=== PATIENT | female | born 1960 ===

== ENCOUNTER 2018-12-29 07:30 | Inpatient (IN) | payer OTHER ==
[~2018-12-29] VITALS: Ht 157.5 cm; Wt 79.4 kg
[2018-12-30] MEDS ORDERED: LANSOPRAZOLE30 MG ORAL (13:10)
[2018-12-30] MEDS ORDERED: SYMBICORT 16010.2 G1 IH (13:10)
[2018-12-31] VITALS (14 sets, daily range): BP systolic 111–142; BP diastolic 71–82
--- NOTE | 2018-12-31 06:25 | NUR ---
PT HAD UTI AND TOOK ANTIBIOTICS X 5 DAYS LAST DOSE LAST SATURDAY.
[2018-12-31] MEDS ORDERED: LR 1000ml 1,000 ML IVLG SCH (06:36)
--- NOTE | 2018-12-31 06:38 | Anethesia Preoperative Eval ---
Anesthesia Pre-op PMH/ROS General Date of Evaluation: December 31, 2018 Time of Evaluation: 07:01 Anesthesiologist: Lynne ASA Score: ASA 3 Mallampati Score Class I : Soft palate, uvula, fauces, pillars visible Class II: Soft palate, uvula, fauces visible Class III: Soft palate, base of uvula visible Class IV: Only hard plate visible Mallampati Classification: Class II Surgeon: Rachid Diagnosis: Back Pain Surgical Procedure: ALIF L5-S1 Anesthesia History: none Family History: no anesthesia problems Allergies: Coded Allergies: CODEINE (Verified Allergy, Severe, 12/30/18) SOB DIPHENHYDRAMINE (Verified Allergy, Severe, 12/30/18) SKIN RASH Medications: see eMAR Patient NPO?: Yes NPO Date: December 30, 2018 NPO Time: 1900 Past Medical History Cardiovascular: Reports: HTN Pulmonary: Reports: asthma - Bronchitis Gastrointestinal/Genitourinary: Reports: GERD, other - Fatty Liver Neurologic/Psychiatric: Reports: other - Migranes Other: obesity - BMI 33 PSxH Narrative: ARIANNA, Umbilical Hernia, Cholecystectomy, Bilateral Bunionectomy Anesthesia Pre-op Phys. Exam Physician Exam Last Vital Signs Date Time Temp Pulse Resp B/P (MAP) Pulse Ox O2 Delivery O2 Flow Rate FiO2 12/31/18 06:19 97.6 67 20 126/76 (93) 96 12/31/18 05:55 Room Air Constitutional: NAD Neurologic: CN 2-12 intact Cardiovascular: RRR Respiratory: CTA Gastrointestinal: S/NT/ND Airway Exam Mallampati Score: Class II MO: full ROM: full Teeth: intact Anesthesia Pre-op A/P Risk Assessment & Plan Assessment: ASA 3 Plan: GA, SED, GlideScope Go Status Change Before Surgery: No Pre-Antibiotics Dru Grams Ancef IV Given Within 1 Hr of Incision: Yes Time Given: 07:21 Christopher Batista MD December 31, 2018 06:38
[2018-12-31] MEDS ORDERED: Gelfoam Size TOPIC ONE (06:42)
[2018-12-31] MEDS ORDERED: Thrombin 5000 units spray kit TOPIC ONE (06:42)
[2018-12-31] MEDS ORDERED: Thrombin 5000 units TOPIC ONE ×2 (06:42→06:44)
[2018-12-31] MEDS ORDERED: Ropivacaine 5mg/ml Vial 30ml INJ ONE (06:42)
[2018-12-31] MEDS ORDERED: Zemuron 50mg/5ml Inj IV ONE (06:43)
[2018-12-31] MEDS ORDERED: Bacitracin 50000 Units Vial ONE (06:43)
--- NOTE | 2018-12-31 06:44 | Pre-Procedure Note/Attestation ---
Pre-Procedure Note/Attestation Complete Prior to Procedure Planned Procedure: not applicable Procedure Narrative: Collapsed L5/S1 Disc Space, Low Back Pain, Instability. For ALIF L5/S1 Indications for Procedure Pre-Operative Diagnosis: Collapsed L5/S1 Disc Space, Low Back Pain, Instability Attestation I attest that I discussed the nature of the procedure; its benefits; risks and complications; and alternatives (and the risks and benefits of such alternatives ), prior to the procedure, with the patient (or the patient's legal bank representative). I attest that, if there was a reasonable possibility of needing a blood transfusion, the patient (or the patient's legal bank representative) was given the [place] [facility] standardized written summary, pursuant to the [place] Blood Safety Act ([place] Health and Safety Code # 1645, as amended). I attest that I re-evaluated the patient just prior to the surgery and that there has been no change in the patient's H&P, except as documented below: South Donnelly December 31, 2018 06:44
[2018-12-31] MEDS ORDERED: Labetalol 5mg/ml 20ml vial IV PRN (06:45)
[2018-12-31] MEDS ORDERED: Metoclopramide 10mg/2ml Inj IVP PRN (06:45)
[2018-12-31] MEDS ORDERED: Ketorolac 30mg Inj IV PRN ×2 (06:45)
[2018-12-31] MEDS ORDERED: fentaNYL 100 mcg/2 mL IV PRN (06:45)
[2018-12-31] MEDS ORDERED: Atropine Sulfate 0.4mg/ml inj IVP PRN (06:45)
[2018-12-31] MEDS ORDERED: Midazolam 2mg/2ml Inj IVP PRN (06:45)
[2018-12-31] MEDS ORDERED: Gelfoam Absorbable 1gm powder pkt TOPIC ONE (06:45)
[2018-12-31] MEDS ORDERED: LORazepam Inj 2mg/ml 1ml IV PRN (06:45)
[2018-12-31] MEDS ORDERED: Lidocaine 1% MPF 10mg/ml 5ml ONE (06:48)
[2018-12-31] MEDS ORDERED: Dexamethasone 4mg/ml vial ONE (06:48)
[2018-12-31] MEDS ORDERED: Sodium Chloride 10ml vial INJ ONE (06:48)
[2018-12-31] MEDS ORDERED: fentaNYL 100 mcg/2 mL IV ONE (06:49)
[2018-12-31] MEDS ORDERED: Lidocaine 1% Plain 30 ml INJ ONE (06:54)
[2018-12-31] MEDS ORDERED: Propofol 1,000mg/ 100ml btl IV ONE (07:00)
[2018-12-31] MEDS ORDERED: LR 1000ml ONE (07:00)
[2018-12-31] MEDS ORDERED: Acetaminophen (Non formulary) 100 ML IV ONE (07:00)
[2018-12-31] MEDS ORDERED: NS Irrig 1000ml IRRIG ONE ×2 (07:32→07:48)
[2018-12-31] MEDS ORDERED: Neostigmine 1mg/ml 10ml Inj ONE (08:50)
[2018-12-31] MEDS ORDERED: Glycopyrrolate 0.2mg/ml 1ml Vial ONE (08:50)
[2018-12-31] MEDS ORDERED: HYDROmorphone 1mg/ml Carpuject SUBQ PRN (09:00)
[2018-12-31] MEDS ORDERED: PCA Education Pamphlet MISC ONE (09:00)
[2018-12-31] MEDS ORDERED: DiphenhydrAMINE 50mg/ml Inj IVP PRN (09:00)
[2018-12-31] MEDS ORDERED: Rate Change PCA 1 Each MISC PRN (09:00)
[2018-12-31] MEDS ORDERED: HYDROcodone/Acetamin 7.5/325 tab ORAL PRN (09:00)
[2018-12-31] MEDS ORDERED: HYDROmorphone 1mg/ml Carpuject IVP PRN (09:00)
[2018-12-31] MEDS ORDERED: Acetaminophen 650 MG SUPP RECTAL PRN (09:00)
[2018-12-31] MEDS ORDERED: Naloxone 0.4mg/ml Inj IVP PRN ×2 (09:00)
[2018-12-31] MEDS ORDERED: PCA HYDROmorphone 1mg/ml 30 ML IV PRN (09:00)
[2018-12-31] MEDS ORDERED: LORazepam 1mg tab ORAL PRN (09:00)
--- NOTE | 2018-12-31 09:08 | Operative Note - PDOC ---
Operative Note Operative Note Pre-op Diagnosis: Collapsed L5/S1 Disc Space, Low Back Pain, Instability Procedure: ALIF L5/S1 with internal stabelization Post-op Diagnosis: same as pre-op Operative Findings: consistent w/pre-op dx studies Surgeon: Rachid Flux Mixer: ROWAN Donnelly Additional Surgeons: Alcantara - Vascular Access Anesthesiologist: Lynne Anesthesia: general Specimen: yes Complications: none Condition: stable Estimated Blood Loss: minimal Drains: none Implant(s) used?: Yes - [place] InFix device with Zimme DBM South Donnelly December 31, 2018 09:08
--- NOTE | 2018-12-31 09:10 | NUR ---
CASE MANAGEMENT:REVIEW 58 YR OLD MALE HERE FOR ELECTIVE SURGERY SI: INSTABILITY AND HERNIATION COLLAPSED L5/S1 DISC SPACE. LOW BACK PAIN 97.6 67 20 126/76 96% ON RA IS: TO SURGERY FOR: ANTERIOR LUMBAR INTERBODY FUSION L5-S1 : TO MED/SURG 3 EAST POST OP INTERQUAL CRITERIA MET
--- NOTE | 2018-12-31 09:18 | Immediate Post-Op Evaluation ---
Immediate Post-Op Evalulation Immediate Post-Op Evalulation Procedure: ALIF L5-S1 Date of Evaluation: December 31, 2018 Time of Evaluation: 09:29 IV Fluids: 800 LR Blood Products: 0 Estimated Blood Loss: 25 Urinary Output: 0 Blood Pressure Systolic: 133 Blood Pressure Diastolic: 83 Pulse Rate: 102 Respiratory Rate: 16 O2 Sat by Pulse Oximetry: 92 Temperature (Fahrenheit): 97.9 Pain Score (1-10): 2 Nausea: No Vomiting: No Complications 0 Patient Status: awake, reacts, patent, extubated, none Hydration Status: adequate Dru Grams Ancef IV Given Within 1 Hr of Incision: Yes Time Given: 07:21 Christopher Batista MD December 31, 2018 09:18
[2018-12-31] MEDS: Meperidine 50mg/ml Inj(FOR RIGORS ONLY) IVP PRN ×2 (09:38→12:59)
--- NOTE | 2018-12-31 11:20 | NUR ---
NURSE NOTES: Patient received into room 302 bed 1,patient is awake and alert,respirations unlabored.patient has abdominal dressing clean ,dry and intact.patient able to move toes,bilateral pedal pulses are strong.Both feet warm to touch,no complaints of numbness or tingling.Patient on X RAY SERVICE ENGINEER [place],reinforce teaching on use of X RAY SERVICE ENGINEER.Bed alarm is on,call light within reach.
[2018-12-31] MEDS: D5 1/2NS w/KCl 20mEq 1,000 ML IV SCH (13:32)
--- NOTE | 2018-12-31 14:22 | Diagnostic Imaging Report ---
Indication: Intraoperative imaging Comparison: None Findings: 3 fluoroscopic views views of the lumbar spine were obtained. Localization followed by discectomy and prosthesis placement at L5-S1 noted. IMPRESSION: Intraoperative imaging
[2018-12-31] MEDS: ceFAZolin sod 1 GM in D5W 55 ML IV SCH ×2 (16:36→23:44)
[2018-12-31] MEDS: Metoclopramide 10mg/2ml Inj IVP PRN ×2 (16:37→23:44)
--- NOTE | 2018-12-31 16:49 | NUR ---
NURSE NOTES:GERMAIN MATA CALLED BACK.INFORMED RE:PATIENTS COMPLAIN OF FRONTAL HEADACHE,THROBBING IN NATURE,AND STILL NAUSEATED AFTER ZOFRAN WAS GIVEN.BP.128/76/HR 84,MOVING ALL EXTREMITIES.STATED TO MONITOR HER.PRIMARY RN(ADAL)INFORMED.
--- NOTE | 2018-12-31 17:42 | NUR ---
NURSE NOTES: Patient state she is starting to feel better,valencia catheter was inserted with return clear light yellow urine noted,patient received zofran 4 mg IVP at 1343 ,patient still feeling nauseated.Reglan 10mg IVP was given at 1637 and patient state she is no longer nauseated at this time. Encourage patient to use GUEST SERVICES COORDINATOR for pain.Will monitor.
--- NOTE | 2018-12-31 17:45 | Operative Note - Dictated ---
DATE OF OPERATION: 12/31/2018 SURGEON: South Rashid M.D. CO-SURGEON: Dr. Alcantara for the vascular approach. REFRIGERATOR CAR ICER: REMY Sanchez. ANESTHESIA: General endotracheal with arterial blood pressure monitoring. ANESTHESIOLOGIST: Christopher Batista M.D. PREOPERATIVE DIAGNOSIS: Disk collapse and instability at L5-S1 with significant posterior bulge involving the lateral recess and bilateral foramina. POSTOPERATIVE DIAGNOSIS: Disk collapse and instability at L5-S1 with significant posterior bulge involving the lateral recess and bilateral foramina. OPERATIVE PROCEDURE: Anterior approach to the lumbosacral disk with vessel mobilization and retraction by Dr. Alcantara, anterior annulotomy and nuclear diskectomy with partial vertebrectomy, bilateral microneurolysis and bilateral foraminotomy, open-reduction and internal fixation at lumbosacral level using a small InFix cage with 8 mm of height and 6 + 3 degrees of lordosis, fusion with autogenous bone and bone protein inserted between the ends of the cage, use of image intensification and Cell Saver. DESCRIPTION OF PROCEDURE: The patient was prepped and draped in the supine position. Bolster was used to create normal lordosis. A left pararectus incision was accomplished by Dr. Alcantara. The rectus was mobilized and the retroperitoneum was dissected exposing the anterior bodies of L5 and S1. The iliac vessels were retracted and a centering janice was made with a needle to identify localization in the disk. Self-retaining retractors were utilized and the middle of the disk was marked. An anterior annulotomy was done with a #10 blade and the soft tissues, which were quite hypertrophic, were removed from the anterior edge of the inferior portion of L5 and the superior sacrum. The dissection was carried out 2 cm from the mid janice. Curettes were used to remove the cartilaginous endplate and soft disk substance sequentially from the front and back. The disk space was distracted beginning with 8 mm distractors, which were detachable, placed right and left for sequential posterior dissection to the posterior edge of the vertebral bodies of L5 and S1. The PLL was released and each of the foramina were widely open with a Kerrison along the posterolateral corner forming the anterior foramen. The space was distracted up to 8 mm and the distraction plug was inserted, checked on AP lateral image for centering and for contact with the endplates. A 6 + 3 degrees of lordosis was added, 6 to the bottom of 5 and 3 to the top of the sacrum to create normal lordosis. The endplates were then tapped into position, checked on AP and lateral, and then the side struts were inserted and the construct was locked when position was again checked. The cage was well positioned, distracting the disk back to normal height creating normal lordosis, and it was well centered and in good contact on both AP and lateral view. The wound was then closed in layers including the anterior posterior sheath, subcutaneous, and skin. BLOOD LOSS: Not significant. The patient was placed in a compression dressing and returned to recovery room in good condition. South Rashid M.D. DR: BRIANA JOB#: [id number] CC:
--- NOTE | 2018-12-31 18:15 | Operative Note - Dictated ---
DATE OF OPERATION: 12/31/2018 VASCULAR SURGEON: David Collins M.D. SPINE SURGEON: South Rashid M.D. PREOPERATIVE DIAGNOSIS: Lumbar pain. POSTOPERATIVE DIAGNOSIS: Lumbar pain. PROCEDURE PERFORMED: Anterior retroperitoneal exposure L5-S1 vertebral interspace, right retroperitoneal approach. INDICATIONS: The patient is a very pleasant woman, who is seen in my office prior to surgery. She has a prior transverse incision for abdominal plasty. She has had WICKER MOLDED CANDLES surgery in the past. She has not had a prior anterior spine operation. No history of deep venous thrombosis or bleeding complications was described. She is made aware of the risks of vascular surgery including possibly vascular injury, deep venous thrombosis, and possible need for blood transfusion. DESCRIPTION OF FINDINGS: A prior transverse incision was used. A right retroperitoneal approach was used. There was no peritoneal or ureteral violation. There is no vascular injury. Exposure of L5-S1 was obtained below the iliac bifurcation by the confirmation in fluoroscopy. On completion, the peritoneum and ureter were intact. The iliac vessels are intact. Blood loss was less than 50 mL. DESCRIPTION OF PROCEDURE: The patient was taken to the operative room. General anesthesia was used. IV antibiotics were given. The patient's abdomen was prepped and draped. Appropriate time-out of procedure taken. Her prior transverse incision was opened transversely. Flaps raised. The anterior fascia was incised longitudinally in the midline. A plane identified posterior to the right rectus abdominis developed posterolaterally towards the patient's right. Retroperitoneal space was bluntly entered below the arcuate line. The peritoneum and ureter were mobilized together towards the patient's left exposing the right common iliac artery and vein. Dissection was carried on the medial surface of the right common iliac vein and carried superiorly until the confluence of the right and left iliac veins was identified. The left iliac vein was then retracted laterally to expose the anterior surface of L5 and S1. The Omni retractor blade was set in place. Fluoroscopy was then used to confirm the appropriate level. The instrumentation performed at L5-S1 is dictated separately. On completion, retractor was gently removed. The peritoneum and ureter are intact. Iliac vessels are intact. Blood loss was less than 50 mL. Anterior fascia was then closed using #1 PDS in a running fashion and the skin and subcutaneous tissue were closed with 3-0 Vicryl and 4-0 Monocryl running subcuticular closure technique. Estimated blood loss less than 100 mL. Complications none. David Collins M.D. DR: BO JOB#: [id number] CC: South Rashid M.D.; Fax#: [phone] DAVID COLLINS M.D. ; FAX#: [phone]
[2018-12-31] MEDS: PCA shift volume MISC SCH (19:00)
--- NOTE | 2018-12-31 19:30 | NUR ---
HAND-OFF: Report given to FCO YEE
--- NOTE | 2018-12-31 19:31 | NUR ---
NURSE NOTES: Received report & pt from NAKIA Cisneros. Pt lying in bed, a&ox4, on O2 via NC @ 2LPM. No s/s of acute distress & no c/o pain at this time. C/o n/v. Will give PRN zofran. Told pt to call RN once able to pass flatus. Marina intact & draining yellow urine output to gravity. Surgical dressing C/D/I. Lumbar brace @ bedside. IV site intact with IVF running as ordered. CONFECTIONERY MAKER settings checked. Bed in lowest position, call light & CONFECTIONERY MAKER pump within reach. Will continue to monitor.
--- NOTE | 2018-12-31 20:25 | General Progress Note ---
Assessment/Plan Assessment/Plan: Collapsed L5/S1 Disc Space, Low Back Pain, Instability ALIF L5/S1 with internal stabelization PLAN 1. incentive spirometry 2. SCDs 3. PT evaluation and therapy 4. Hydration 5. Pain management 6. discharge once stable with outpatient follow up Subjective Allergies: Coded Allergies: CODEINE (Verified Allergy, Severe, 12/30/18) SOB DIPHENHYDRAMINE (Verified Allergy, Severe, 12/30/18) SKIN RASH Subjective asked to follow seen earlier Objective Last 24 Hour Vital Signs Date Time Temp Pulse Resp B/P (MAP) Pulse Ox O2 Delivery O2 Flow Rate FiO2 12/31/18 16:00 98.1 105 19 117/72 (87) 96 12/31/18 16:00 18 12/31/18 14:17 97.7 84 20 128/76 (93) 97 12/31/18 13:05 18 12/31/18 12:35 18 12/31/18 12:20 97.3 79 18 111/71 (84) 95 12/31/18 12:05 18 12/31/18 11:50 18 12/31/18 11:45 20 12/31/18 11:35 18 12/31/18 11:30 17 12/31/18 11:20 18 12/31/18 11:15 15 12/31/18 11:00 18 12/31/18 10:50 97.3 70 18 132/77 96 Nasal Cannula 3 12/31/18 10:44 81 19 129/79 95 Nasal Cannula 3 12/31/18 10:30 71 16 137/81 96 Nasal Cannula 3 12/31/18 10:15 84 20 126/82 95 Nasal Cannula 3 12/31/18 10:08 97.3 12/31/18 10:00 72 16 130/80 95 Nasal Cannula 3 12/31/18 09:45 79 18 123/78 96 Simple Mask 6 12/31/18 09:30 81 20 132/82 95 Simple Mask 6 12/31/18 09:25 89 17 135/80 92 Simple Mask 6 12/31/18 09:18 97.9 100 16 133/75 89 Simple Mask 6 12/31/18 09:18 102 16 92 12/31/18 06:19 97.6 67 20 126/76 (93) 96 12/31/18 05:55 Room Air 12/31/18 05:50 Room Air Height (Feet): 5 Height (Inches): 2.00 Weight (Pounds): 175 Objective WDWN NAD clear breath sounds bilaterally without rhonchi or wheeze [id number] without MRG NABS nontender no HSM no CCE nonfocal Rajeev Díaz MD December 31, 2018 20:25
[2018-12-31] MEDS: Tums 500mg ORAL PRN (22:11)
[2019-01-01] VITALS: BP 115/74
[2019-01-01] MEDS: D5 1/2NS w/KCl 20mEq 1,000 ML IV SCH ×2 (01:53→16:11)
[2019-01-01 04:00] VITALS: BP 125/75
[2019-01-01] MEDS: Tums 500mg ORAL PRN (05:31)
[2019-01-01] MEDS: ceFAZolin sod 1 GM in D5W 55 ML IV SCH (06:44)
[2019-01-01] MEDS: PCA shift volume MISC SCH ×2 (07:15→19:43)
--- NOTE | 2019-01-01 07:30 | NUR ---
HAND-OFF: Report given to NAKIA Ennis. Pt in stable condition. Rounds done.
--- NOTE | 2019-01-01 07:35 | NUR ---
NURSE NOTES: received pateint on bed, asleep. Family at bedside. IV site in tact and patent. AWS SOLUTION ARCHITECT present. Bed in low and locked position, call light in reach. No signs of respiratory distress or pain. Room board updated, will continue to monitor.
[2019-01-01 08:00] VITALS: BP 125/73
--- NOTE | 2019-01-01 08:13 | General Progress Note ---
Assessment/Plan Assessment/Plan: Collapsed L5/S1 Disc Space, Low Back Pain, Instability ALIF L5/S1 with internal stabelization PLAN 1. incentive spirometry 2. SCDs 3. PT evaluation and therapy 4. Hydration 5. Pain management 6. discharge planning impression, plan, and exam edited and reviewed in detail care discussed with RN Subjective Allergies: Coded Allergies: CODEINE (Verified Allergy, Severe, 12/30/18) SOB DIPHENHYDRAMINE (Verified Allergy, Severe, 12/30/18) SKIN RASH Subjective care noted stable overnight Objective Last 24 Hour Vital Signs Date Time Temp Pulse Resp B/P (MAP) Pulse Ox O2 Delivery O2 Flow Rate FiO2 01/01/19 04:00 17 01/01/19 04:00 99.7 97 17 125/75 (92) 93 01/01/19 00:00 98.5 100 19 115/74 (88) 94 12/31/18 23:50 16 12/31/18 21:00 Nasal Cannula 2.0 12/31/18 20:00 15 12/31/18 20:00 97.5 93 15 142/82 (102) 95 12/31/18 19:46 Nasal Cannula 2.0 28 12/31/18 19:46 95 Nasal Cannula 2.0 28 12/31/18 16:00 98.1 105 19 117/72 (87) 96 12/31/18 16:00 18 12/31/18 14:17 97.7 84 20 128/76 (93) 97 12/31/18 13:05 18 12/31/18 12:35 18 12/31/18 12:20 97.3 79 18 111/71 (84) 95 12/31/18 12:05 18 12/31/18 11:50 18 12/31/18 11:45 20 12/31/18 11:35 18 12/31/18 11:30 Nasal Cannula 2.0 12/31/18 11:30 17 12/31/18 11:20 18 12/31/18 11:15 15 12/31/18 11:00 18 12/31/18 10:50 97.3 70 18 132/77 96 Nasal Cannula 3 12/31/18 10:44 81 19 129/79 95 Nasal Cannula 3 12/31/18 10:30 71 16 137/81 96 Nasal Cannula 3 5/15/19 10:15 84 20 126/82 95 Nasal Cannula 3 12/31/18 10:08 97.3 12/31/18 10:00 72 16 130/80 95 Nasal Cannula 3 12/31/18 09:45 79 18 123/78 96 Simple Mask 6 12/31/18 09:30 81 20 132/82 95 Simple Mask 6 12/31/18 09:25 89 17 135/80 92 Simple Mask 6 12/31/18 09:18 97.9 100 16 133/75 89 Simple Mask 6 12/31/18 09:18 102 16 92 Intake and Output 12/31/18 01/01/19 18:59 06:59 Intake Total 467.5 ml 825 ml Output Total 275 ml 1150 ml Balance 192.5 ml -325 ml Intake IV Total 467.5 ml 825 ml Output Urine Total 275 ml 1150 ml Height (Feet): 5 Height (Inches): 2.00 Weight (Pounds): 175 Objective WDWN NAD clear breath sounds bilaterally without rhonchi or wheeze [id number] without MRG NABS nontender no HSM no CCE nonfocal Rajeev Díaz MD January 01, 2019 08:13
--- NOTE | 2019-01-01 10:30 | NUR ---
NURSE NOTES: Patient states no gas.
--- NOTE | 2019-01-01 11:27 | 48 Hour Post Anesthesia Eval ---
Post Anesthesia Evaluation Procedure: ALIF L5-S1 Date of Evaluation: January 01, 2019 Time of Evaluation: 11:26 Blood Pressure Systolic: 124 0: 72 Pulse Rate: 68 Respiratory Rate: 20 Temperature (Fahrenheit): 97.6 O2 Sat by Pulse Oximetry: 98 Airway: patent Nausea: Yes Vomiting: Yes Pain Intensity: 3 Hydration Status: adequate Cardiopulmonary Status: stable Mental Status/LOC: patient returned to baseline Follow-up Care/Observations: n/a Post-Anesthesia Complications: none Follow-up care needed: N/A Rom Fuentes MD January 01, 2019 11:27
[2019-01-01 12:00] VITALS: BP 140/80
--- NOTE | 2019-01-01 14:21 | NUR ---
P.T Note: late entry for 0945 P.T evaluation completed and treatment initiated per spinal protocol. Please refer to P.T evaluation for current functional status. Pt is limited mostly by pain in the lower back and abdomen ( incision site ) and nausea with vomiting episodes. Pt currently require MIN A x 1 , verbal cues and extended time for bed mobility, transfers and gait/ambulation activities using the FWW. Skilled P.T service is warranted to ensure, independence and compliance with spinal precautions in ADL/functional mobilities and gait/locomotion. Might require FWW and raised toilet seat at IN.
--- NOTE | 2019-01-01 14:33 | NUR ---
CASE MANAGEMENT:REVIEW 01/01/19 SI: POD #1 S/P ALIF L5/S1 WITH INTERNAL STABILIZATION 98.3 101 16 140/80 98% ON 2L/NC IS: FANCY SEWER DILAUDID IVF@75/HR : MED/SURG STATUS 3 EAST
--- NOTE | 2019-01-01 14:33 | General Surgery Progress Note ---
General Surgery-Progress Note Subjective Procedure Performed ALIF L5/S1 with internal stabelization Objective Last 24 Hour Vital Signs Date Time Temp Pulse Resp B/P (MAP) Pulse Ox O2 Delivery O2 Flow Rate FiO2 01/01/19 12:00 98.3 101 16 140/80 (100) 92 01/01/19 12:00 17 01/01/19 11:27 68 20 98 01/01/19 09:00 Nasal Cannula 2.0 01/01/19 08:00 98.6 101 16 125/73 (90) 88 01/01/19 08:00 17 01/01/19 04:00 17 01/01/19 04:00 99.7 97 17 125/75 (92) 93 01/01/19 00:00 98.5 100 19 115/74 (88) 94 12/31/18 23:50 16 12/31/18 21:00 Nasal Cannula 2.0 12/31/18 20:00 15 12/31/18 20:00 97.5 93 15 142/82 (102) 95 12/31/18 19:46 Nasal Cannula 2.0 28 12/31/18 19:46 95 Nasal Cannula 2.0 28 12/31/18 16:00 98.1 105 19 117/72 (87) 96 12/31/18 16:00 18 I&O Intake and Output 12/31/18 01/01/19 19:00 07:00 Intake Total 542.5 ml 750 ml Output Total 275 ml 1150 ml Balance 267.5 ml -400 ml Intake IV Total 542.5 ml 750 ml Output Urine Total 275 ml 1150 ml Dressing: dry Wound: clean Drains: none Additional Comments Patient uncomfortable overnight. Headache that responds to ibuprofen in past. Will defer to Dr. Díaz for treatment. To begin PT/OT. NPO until passes gas. Dr. Díaz following. [place] Donnelly January 01, 2019 14:33
[2019-01-01 16:00] VITALS: BP 138/72
--- NOTE | 2019-01-01 16:30 | NUR ---
NURSE NOTES: Patient states she has had no gas movement.
--- NOTE | 2019-01-01 19:47 | NUR ---
HAND-OFF: Report given to Carmine Arriaga.
--- NOTE | 2019-01-01 19:50 | NUR ---
NURSE NOTES: Pt received supine, in bed, alert and oriented x4 yet sleepy, drowsy. IV site intact and patent, asymptomatic, IVF running. CREDENTIALS SPECIALIST on. Bed in low and locked position, side railsx2, call light in reach. No signs of respiratory distress or pain. On nasal cannula 2 liters. Will continue to monitor.
[2019-01-01 20:00] VITALS: BP 91/70
[2019-01-02] VITALS: BP 113/65
[2019-01-02 04:00] VITALS: BP 110/70
[2019-01-02] MEDS: D5 1/2NS w/KCl 20mEq 1,000 ML IV SCH ×2 (05:05→18:02)
[2019-01-02] MEDS: PCA shift volume MISC SCH ×2 (07:00→19:28)
--- NOTE | 2019-01-02 07:45 | NUR ---
NURSE NOTES: Received report from Sofie YEE. Patient is awake alert and oriented x4, no acute distress noted. IVF running per order, IV intact and asymptomatic. LOADING SUPERVISOR settings checked and verified against order. Marina to gravity drainage, draining clear, yellow urine. Patient reporting some pain in anterior abdomen, not requesting pain medication at this time. Dressing clean, dry, intact. Side rails upx3, bed low and locked, call light in reach. Will continue to monitor.
--- NOTE | 2019-01-02 07:54 | NUR ---
HAND-OFF: Report given to NKAIA Lund.
[2019-01-02 08:00] VITALS: BP 100/64
--- NOTE | 2019-01-02 09:09 | Pulmonology Progress Note ---
Assessment/Plan Assessment/Plan Pulmonary Progress Note Assessment/Plan: Collapsed L5/S1 Disc Space, Low Back Pain, Instability ALIF L5/S1 with internal stabelization No new complaints, intermittent headache PLAN 1. incentive spirometry 2. SCDs 3. PT evaluation and therapy 4. Hydration 5. Pain management 6. discharge planning impression, plan, and exam edited and reviewed in detail care discussed with RN Subjective Allergies: Coded Allergies: CODEINE (Verified Allergy, Severe, 12/30/18) SOB DIPHENHYDRAMINE (Verified Allergy, Severe, 12/30/18) SKIN RASH Subjective care noted stable overnight Objective Vital Signs Noted Height (Feet): 5 Height (Inches): 2.00 Weight (Pounds): 175 Objective WDWN NAD clear breath sounds bilaterally without rhonchi or wheeze [id number] without MRG NABS nontender no HSM no CCE nonfocal Subjective ROS Limited/Unobtainable: No Allergies: Coded Allergies: CODEINE (Verified Allergy, Severe, 12/30/18) SOB DIPHENHYDRAMINE (Verified Allergy, Severe, 12/30/18) SKIN RASH Objective Last 24 Hour Vital Signs Date Time Temp Pulse Resp B/P (MAP) Pulse Ox O2 Delivery O2 Flow Rate FiO2 01/02/19 04:00 97.9 98 17 110/70 (83) 94 01/02/19 03:59 17 01/02/19 00:00 17 01/02/19 00:00 100.2 97 16 113/65 (81) 95 01/01/19 21:00 Nasal Cannula 2.0 01/01/19 20:00 99.5 101 18 91/70 (77) 93 01/01/19 20:00 16 01/01/19 19:46 96 Nasal Cannula 2.0 28 01/01/19 19:46 Nasal Cannula 2.0 28 01/01/19 16:00 17 01/01/19 16:00 98.1 97 16 138/72 (94) 95 01/01/19 12:00 98.3 101 16 140/80 (100) 92 01/01/19 12:00 17 01/01/19 11:27 68 20 98 Intake and Output 01/01/19 01/02/19 18:59 06:59 Intake Total 825 ml 825 ml Output Total 1000 ml 800 ml Balance -175 ml 25 ml Intake IV Total 825 ml 825 ml Output Urine Total 1000 ml 800 ml Current Medications Medications (Trade) Dose Ordered Sig/Baljeet Route PRN Reason Start Time Stop Time Status Last Admin Dose Admin Acetaminophen (Tylenol) 650 mg Q4H PRN ORAL headache or temp>101 12/31/18 09:00 01/30/19 08:59 Acetaminophen (Tylenol) 650 mg Q4H PRN RECTAL headache or temp>101 12/31/18 09:00 01/30/19 08:59 Acetaminophen (Tylenol) 650 mg Q6H PRN ORAL Mild Pain (Pain Scale 1-3) 12/31/18 09:00 01/30/19 08:59 Acetaminophen/ Hydrocodone Bitart ([place] 7.5/325) 1 tab Q3H PRN ORAL pain score 4-6 12/31/18 09:00 01/07/19 08:59 Acetaminophen/ Hydrocodone Bitart ([place] 7.5/325) 2 tab Q3H PRN ORAL pain scale 7-10 12/31/18 09:00 01/07/19 08:59 Calcium Carbonate (Tums) 500 mg QIDPRN PRN ORAL indigestion 12/31/18 20:30 01/30/19 20:29 01/01/19 05:31 Dextrose/ Electrolytes 1,000 ml @ 75 mls/hr [id number] IV 12/31/18 12:30 01/30/19 12:29 01/02/19 05:05 Hydromorphone HCl 30 ml @ 0 mls/hr Q24H PRN IV For Pain 01/02/19 09:00 01/04/19 08:59 UNV Hydromorphone HCl (Dilaudid) 1 mg Q2H PRN IVP Breakthrough Pain 12/31/18 09:00 01/07/19 08:59 Hydromorphone HCl (Dilaudid) 1 mg Q4H PRN SUBQ Mild Pain (Pain Scale 1-3) 12/31/18 09:00 01/07/19 08:59 Hydromorphone HCl (Dilaudid) 2 mg Q3H PRN SUBQ Severe Pain (Pain Scale 7-10) 12/31/18 09:00 01/07/19 08:59 Hydromorphone HCl (Dilaudid) 2 mg Q4H PRN SUBQ Moderate Pain (Pain Scale 4-6) 12/31/18 09:00 01/07/19 08:59 Lorazepam (Ativan) 1 mg Q4H PRN ORAL Muscle Spasm 01/02/19 09:00 01/04/19 08:59 UNV Metoclopramide HCl (Reglan) 10 mg Q6H PRN IVP Nausea & Vomiting 12/31/18 09:00 01/30/19 08:59 12/31/18 23:44 Miscellaneous Medication (LAYOUT DESIGNER Rate Change) 1 ea DAILY PRN MISC rate change 01/02/19 09:00 01/04/19 08:59 UNV Miscellaneous Medication (LAYOUT DESIGNER shift volume) 1 ea Q12HR@0700,1900 MISC 01/02/19 19:00 01/04/19 18:59 UNV Naloxone HCl (Narcan) 0.1 mg Q1M PRN IVP RR<10/min OR SBP<90 mmHg 01/02/19 08:50 01/04/19 08:48 UNV Ondansetron HCl (Zofran) 4 mg Q6H PRN IVP Nausea & Vomiting 01/02/19 09:00 01/04/19 08:59 UNV Temazepam (Restoril) 7.5 mg HSPRN PRN ORAL Insomnia 01/02/19 09:00 01/04/19 08:59 UNV Raymon Johnson MD January 02, 2019 09:09
[2019-01-02] MEDS ORDERED: LORazepam 1mg tab ORAL PRN (09:45)
[2019-01-02] MEDS ORDERED: PCA HYDROmorphone 1mg/ml 30 ML IV PRN (09:45)
[2019-01-02] MEDS ORDERED: Naloxone 0.4mg/ml Inj IVP PRN (09:45)
[2019-01-02] MEDS ORDERED: Rate Change PCA 1 Each MISC PRN (09:45)
[2019-01-02 12:00] VITALS: BP 113/68
--- NOTE | 2019-01-02 12:00 | NUR ---
NURSE NOTES: Zofran given PRN for nausea. Patient reports she is feeling better. Will continue to monitor.
--- NOTE | 2019-01-02 14:07 | NUR ---
CASE MANAGEMENT:REVIEW 01/02/19 SI: POD #2 S/P ALIF L5/S1 WITH INTERNAL STABILIZATION 100.2 97 17 113/65 95% ON 2L/NC IS: SEMICONDUCTOR PACKAGES SEALER DILAUDID IVF@75/HR IV ZOFRAN Q6HRS PRN : MED/SURG STATUS 3 EAST DCP: PATIENT IS FROM HOME
[2019-01-02 16:00] VITALS: BP 94/61
--- NOTE | 2019-01-02 19:30 | NUR ---
HAND-OFF: Report given to Larry YEE. Patient is in stable condition.
[2019-01-02 20:00] VITALS: BP 111/65
--- NOTE | 2019-01-02 23:16 | NUR ---
NURSE NOTES: Patient in bed awake and oriented. Family at bedside. VSS. No SOB noted. Dressing is clean and intact. Marina catheter in place and draining well. GAS OPERATOR use for increasing pain. IS at bedside. Needs attended. Due meds given. Call light within reach. In stable condition.
[2019-01-03] VITALS: BP 88/56
[2019-01-03] MEDS: D5 1/2NS w/KCl 20mEq 1,000 ML IV SCH ×2 (03:26→12:59)
[2019-01-03 04:00] VITALS: BP 93/63
[2019-01-03] MEDS: PCA shift volume MISC SCH ×2 (07:12→19:09)
--- NOTE | 2019-01-03 07:34 | NUR ---
NURSE NOTES: PT AXOX4, CALM, RESTING IN BED. PT EDUCATED ON NPO STATUS UNTIL PT PASSES GAS. PT VERBALIZED UNDERSTANDING. RN EDUCATED PT TO AMBULATE WHICH WILL HELP STIMULATE BOWELS. PT COMPLAINS OF SEVERE HEADACHE, AND RN ADMINISTERED PRN TYLENOL 650MG ORDERED. IN NO APPARENT DISTRESS AT THIS TIME. HORNE CATH DRAINING CLEAR YELLOW URINE BY GRAVITY. CALL LIGHT WITHIN REACH. BED IN LOWEST POSITION WITH BEDSIDE RAILS X2 RAISED. WILL CONTINUE TO MONITOR.
--- NOTE | 2019-01-03 07:56 | General Progress Note ---
Assessment/Plan Assessment/Plan: Collapsed L5/S1 Disc Space, Low Back Pain, Instability ALIF L5/S1 with internal stabalization PLAN 1. incentive spirometry 2. out of bed as able 3. PT evaluation and therapy 4. Hydration and po intake 5. Pain management 6. discharge planning hope today impression, plan, and exam edited and reviewed in detail care discussed with RN Subjective Allergies: Coded Allergies: CODEINE (Verified Allergy, Severe, 12/30/18) SOB DIPHENHYDRAMINE (Verified Allergy, Severe, 12/30/18) SKIN RASH Subjective care noted stable overnight Objective Last 24 Hour Vital Signs Date Time Temp Pulse Resp B/P (MAP) Pulse Ox O2 Delivery O2 Flow Rate FiO2 01/03/19 07:31 98 Nasal Cannula 2.0 28 01/03/19 07:31 Nasal Cannula 2.0 28 01/03/19 04:00 98.3 77 18 93/63 (73) 94 01/03/19 04:00 20 01/03/19 00:00 20 01/03/19 00:00 97.7 76 18 88/56 (67) 94 01/02/19 21:00 Nasal Cannula 2.0 01/02/19 20:00 100.2 83 18 111/65 (80) 96 01/02/19 20:00 20 01/02/19 16:00 20 01/02/19 16:00 99.6 88 20 94/61 (72) 93 01/02/19 12:00 100.9 89 20 113/68 (83) 92 01/02/19 12:00 20 01/02/19 09:53 Nasal Cannula 2.0 28 01/02/19 09:53 96 Nasal Cannula 2.0 28 01/02/19 09:00 Nasal Cannula 2.0 01/02/19 08:00 20 01/02/19 08:00 99.4 77 20 100/64 (76) 93 Intake and Output 01/02/19 01/03/19 19:00 07:00 Intake Total 900 ml 825 ml Output Total 1400 ml 500 ml Balance -500 ml 325 ml Intake IV Total 900 ml 825 ml Output Urine Total 1400 ml 500 ml Height (Feet): 5 Height (Inches): 2.00 Weight (Pounds): 175 Objective WDWN NAD clear breath sounds bilaterally without rhonchi or wheeze [id number] without MRG NABS nontender no HSM no CCE nonfocal Rajeev Díaz MD January 03, 2019 07:56
[2019-01-03 08:00] VITALS: BP 103/66
--- NOTE | 2019-01-03 09:26 | General Surgery Progress Note ---
General Surgery-Progress Note Subjective Procedure Performed ALIF L5/S1 with internal stabelization Symptoms: improved Objective Last 24 Hour Vital Signs Date Time Temp Pulse Resp B/P (MAP) Pulse Ox O2 Delivery O2 Flow Rate FiO2 01/03/19 08:00 98.2 81 18 103/66 (78) 93 01/03/19 08:00 18 01/03/19 07:31 98 Nasal Cannula 2.0 28 01/03/19 07:31 Nasal Cannula 2.0 28 01/03/19 04:00 98.3 77 18 93/63 (73) 94 01/03/19 04:00 20 01/03/19 00:00 20 01/03/19 00:00 97.7 76 18 88/56 (67) 94 01/02/19 21:00 Nasal Cannula 2.0 01/02/19 20:00 100.2 83 18 111/65 (80) 96 01/02/19 20:00 20 01/02/19 16:00 20 01/02/19 16:00 99.6 88 20 94/61 (72) 93 01/02/19 12:00 100.9 89 20 113/68 (83) 92 01/02/19 12:00 20 01/02/19 09:53 Nasal Cannula 2.0 28 01/02/19 09:53 96 Nasal Cannula 2.0 28 I&O Intake and Output 01/02/19 01/03/19 19:00 07:00 Intake Total 900 ml 825 ml Output Total 1400 ml 500 ml Balance -500 ml 325 ml Intake IV Total 900 ml 825 ml Output Urine Total 1400 ml 500 ml Dressing: dry Wound: dry Additional Comments Patient passing gas >> starting on Clears. Assessment Additional Comments Advancing diet. PT / OT following. Dr. Díaz following. Home when tolerates regular diet 24 hours. [place] January 03, 2019 09:26
[2019-01-03 12:00] VITALS: BP 93/59
[2019-01-03 16:00] VITALS: BP 89/58
--- NOTE | 2019-01-03 17:06 | NUR ---
CASE MANAGEMENT: REVIEW SI: COLLAPSED L5/S1 DISC SPACE . LOW BACK PAIN & INSTABILITY ALIF L5-S1 w/INTERNAL STABILIZATION 12/31 T 98.3 HR 69 RR 19 BP 89/58 SAT 96% NC/2L IS: EDUCATIONAL PROGRAM DIRECTOR DILAUDID ZOFRAN IV Q6HR PRN PT EVALUATION AND THERAPY CLEAR LIQUID PO DIET MED/SURG STATUS DCP: PATIENT IS FROM
--- NOTE | 2019-01-03 19:18 | NUR ---
HAND-OFF: Report given to Terri DOUGLAS RN.
[2019-01-03 20:00] VITALS: BP 95/58
[2019-01-04] VITALS: BP 97/60
[2019-01-04] MEDS: D5 1/2NS w/KCl 20mEq 1,000 ML IV SCH ×2 (02:05→15:56)
[2019-01-04 04:00] VITALS: BP 84/56
--- NOTE | 2019-01-04 07:10 | NUR ---
HAND-OFF: Report given to NAKIA Baron.
[2019-01-04] MEDS: PCA shift volume MISC SCH (07:14)
--- NOTE | 2019-01-04 07:15 | NUR ---
NURSE NOTES: Patient lying in bed awake. No complain of pain or distress at this time. On ANGLE DOZER OPERATOR for pain management. Skin intact and dry. Surgical dressing intact and dry. IV dressing intact and dry. Bed lowest position. Call light and ANGLE DOZER OPERATOR button within reach. Will continue to monitor.
[2019-01-04 08:00] VITALS: BP 111/63
--- NOTE | 2019-01-04 09:19 | General Surgery Progress Note ---
General Surgery-Progress Note Subjective Procedure Performed ALIF L5/S1 with internal stabelization Symptoms: improved Objective Last 24 Hour Vital Signs Date Time Temp Pulse Resp B/P (MAP) Pulse Ox O2 Delivery O2 Flow Rate FiO2 01/04/19 08:00 18 01/04/19 08:00 98.6 72 18 111/63 (79) 94 01/04/19 04:00 18 01/04/19 04:00 99.0 89 18 84/56 (65) 94 01/04/19 00:00 99.5 89 18 97/60 (72) 94 01/03/19 21:43 Nasal Cannula 2.0 28 01/03/19 21:00 Nasal Cannula 2.0 01/03/19 20:00 98 Nasal Cannula 2.0 28 01/03/19 20:00 98.1 82 18 95/58 (70) 95 01/03/19 20:00 17 01/03/19 16:00 98.6 73 18 89/58 (68) 91 01/03/19 16:00 17 01/03/19 12:00 98.3 69 19 93/59 (70) 96 01/03/19 12:00 19 I&O Intake and Output 01/03/19 01/04/19 19:00 07:00 Intake Total 900 ml 900 ml Output Total 430 ml 450 ml Balance 470 ml 450 ml Intake Oral 300 ml IV Total 600 ml 900 ml Output Urine Total 430 ml 450 ml Dressing: dry Wound: clean Additional Comments Wound clean and dry. TRU valencia. Wear brace 11/03. Dr. Arjun mendez. Probaaavelino OTT home 01/05. [place] January 04, 2019 09:19
--- NOTE | 2019-01-04 09:44 | General Progress Note ---
Assessment/Plan Assessment/Plan: Collapsed L5/S1 Disc Space, Low Back Pain, Instability ALIF L5/S1 with internal stabalization PLAN 1. incentive spirometry 2. out of bed as able 3. PT evaluation and therapy 4. Hydration and po intake 5. Pain management 6. discharge planning if tolerating diet impression, plan, and exam edited and reviewed in detail care discussed with RN Subjective Allergies: Coded Allergies: CODEINE (Verified Allergy, Severe, 12/30/18) SOB DIPHENHYDRAMINE (Verified Allergy, Severe, 12/30/18) SKIN RASH Subjective care noted stable overnight Objective Last 24 Hour Vital Signs Date Time Temp Pulse Resp B/P (MAP) Pulse Ox O2 Delivery O2 Flow Rate FiO2 01/04/19 08:00 18 01/04/19 08:00 98.6 72 18 111/63 (79) 94 01/04/19 04:00 18 01/04/19 04:00 99.0 89 18 84/56 (65) 94 01/04/19 00:00 99.5 89 18 97/60 (72) 94 01/03/19 21:43 Nasal Cannula 2.0 28 01/03/19 21:00 Nasal Cannula 2.0 01/03/19 20:00 98 Nasal Cannula 2.0 28 01/03/19 20:00 98.1 82 18 95/58 (70) 95 01/03/19 20:00 17 01/03/19 16:00 98.6 73 18 89/58 (68) 91 01/03/19 16:00 17 01/03/19 12:00 98.3 69 19 93/59 (70) 96 01/03/19 12:00 19 Intake and Output 01/03/19 01/04/19 19:00 07:00 Intake Total 900 ml 900 ml Output Total 430 ml 450 ml Balance 470 ml 450 ml Intake Oral 300 ml IV Total 600 ml 900 ml Output Urine Total 430 ml 450 ml Height (Feet): 5 Height (Inches): 2.00 Weight (Pounds): 175 Objective WDWN NAD clear breath sounds bilaterally without rhonchi or wheeze [id number] without MRG NABS nontender no HSM no CCE nonfocal Rajeev Díaz MD January 04, 2019 09:44
[2019-01-04 10:00] LABS: BASOPHILS % (AUTO) 1.3 % (0.0-2.0); HEMATOCRIT 36.9 % (37.0-47.0); HEMOGLOBIN 12.3 G/DL (12.0-16.0); LYMPHOCYTES % (AUTO) 19.1 % (20.0-45.0); MEAN CORPUSCULAR VOLUME 97 FL (80-99); MONOCYTES % (AUTO) 9.8 % (1.0-10.0); NEUTROPHILS % (AUTO) 65.9 % (45.0-75.0); PLATELET COUNT 259 K/UL (150-450); RED BLOOD COUNT 3.82 M/UL (4.20-5.40); RED CELL DISTRIBUTION WIDTH 11.7 % (11.6-14.8); WHITE BLOOD COUNT 7.3 K/UL (4.8-10.8)
[2019-01-04 10:15] LABS: ANION GAP 3 mmol/L (5-15); BLOOD UREA NITROGEN 7 mg/dL (7-18); CALCIUM 8.8 MG/DL (8.5-10.1); CARBON DIOXIDE 31 MMOL/L (21-32); CHLORIDE 102 MMOL/L (98-107); CREATININE 0.7 MG/DL (0.55-1.30); POTASSIUM 3.9 MMOL/L (3.5-5.1); SODIUM 136 MMOL/L (136-145)
--- NOTE | 2019-01-04 11:15 | NUR ---
NURSE NOTES: Removed Marina catheter with 100 cc yellow urine. No complain of pain or discomfort at this time. Patient tolerated procedure well. Will continue to monitor.
[2019-01-04 13:45] VITALS: BP 108/68
[2019-01-04] MEDS: HYDROcodone/Acetamin 7.5/325 tab ORAL PRN ×3 (14:38→21:51)
[2019-01-04 16:00] VITALS: BP 102/61
--- NOTE | 2019-01-04 16:22 | NUR ---
CASE MANAGEMENT: REVIEW SI: COLLAPSED L5/S1 DISC SPACE . LOW BACK PAIN & INSTABILITY ALIF L5-S1 w/INTERNAL STABILIZATION 12/31 T 99.5 HR 89 RR 18 BP 84/56 SAT 94% NC/2L A-GAP 3 GLUCOSE 123 IS: D5 1/2 NS w/KCl 20mEq IVF@75ML/HR DILAUDID SQ 2MG PRN REGLAN IV PRN PT EVAL AND THERAPY CLEAR LIQUID PO DIET MED/SURG STATUS DCP: PATIENT IS FROM HOME
--- NOTE | 2019-01-04 17:04 | NUR ---
NURSE NOTES: Patient voided 250cc yellow urine. No complain of pain or discomfort. Patient tolerated activity well. Will continue to monitor.
--- NOTE | 2019-01-04 19:40 | NUR ---
HAND-OFF: Report given to Juan Daniel YEE. Patient in stable condition.
--- NOTE | 2019-01-04 19:47 | NUR ---
NURSE NOTES: Received patient awake in bed, family at the bedside, no s/s of acute distress, c/o 8/10 pain, surgical dressing dry and intact. IV access asymptomatic, IVF running. Walker at the bedside. Fall and safety precautions taken.
[2019-01-04 20:00] VITALS: BP 110/63
[2019-01-05] VITALS: BP 107/60
[2019-01-05] MEDS: HYDROcodone/Acetamin 7.5/325 tab ORAL PRN ×4 (02:32→17:11)
[2019-01-05 04:00] VITALS: BP 105/60
[2019-01-05] MEDS: D5 1/2NS w/KCl 20mEq 1,000 ML IV SCH (05:45)
--- NOTE | 2019-01-05 07:23 | NUR ---
NURSE NOTES: Received report from NAKIA Frances. Rounding done with outgoing nurse. Patient a/o x4 having a breakfast. Patient c/o back pain as 9/10 and pain medicine will be given as MD ordered. at bedside. Bed in lowest position, call light within reach. Will continue to monitor.
--- NOTE | 2019-01-05 07:32 | NUR ---
HAND-OFF: Report given to NAKIA Angela.
[2019-01-05 08:00] VITALS: BP 128/69
--- NOTE | 2019-01-05 08:03 | General Progress Note ---
Assessment/Plan Assessment/Plan: Collapsed L5/S1 Disc Space, Low Back Pain, Instability ALIF L5/S1 with internal stabalization PLAN 1. incentive spirometry 2. out of bed as able 3. PT evaluation and therapy 4. Hydration and po intake 5. Pain management 6. discharge today- pending approval of pain meds impression, plan, and exam edited and reviewed in detail care discussed with RN Subjective Allergies: Coded Allergies: CODEINE (Verified Allergy, Severe, 12/30/18) SOB DIPHENHYDRAMINE (Verified Allergy, Severe, 12/30/18) SKIN RASH Subjective care noted stable overnight Objective Last 24 Hour Vital Signs Date Time Temp Pulse Resp B/P (MAP) Pulse Ox O2 Delivery O2 Flow Rate FiO2 01/05/19 04:00 99.0 89 18 105/60 (75) 98 01/05/19 03:02 98.3 01/05/19 00:00 98.3 85 18 107/60 (76) 98 01/04/19 21:00 Nasal Cannula 2.0 01/04/19 20:00 98.7 97 18 110/63 (79) 97 01/04/19 16:00 99.6 95 19 102/61 (75) 97 01/04/19 13:45 99.1 88 18 108/68 (81) 96 01/04/19 09:00 Nasal Cannula 2.0 Intake and Output 01/04/19 01/05/19 19:00 07:00 Intake Total 540 ml 875 ml Output Total 400 ml 250 ml Balance 140 ml 625 ml Intake Oral 540 ml 200 ml IV Total 675 ml Output Urine Total 400 ml 250 ml # Voids 2 Laboratory Tests 01/04/19 09:40: White Blood Count 7.3, Red Blood Count 3.82L, Hemoglobin 12.3, Hematocrit 36.9L , Mean Corpuscular Volume 97, Mean Corpuscular Hemoglobin 32.3H, Mean Corpuscular Hemoglobin Concent 33.4, Red Cell Distribution Width 11.7, Platelet Count 259, Mean Platelet Volume 8.6, Neutrophils (%) (Auto) 65.9, Lymphocytes (% ) (Auto) 19.1L, Monocytes (%) (Auto) 9.8, Eosinophils (%) (Auto) 4.0H, Basophils (%) (Auto) 1.3, Sodium Level 136, Potassium Level 3.9, Chloride Level 102, Carbon Dioxide Level 31, Anion Gap 3L, Blood Urea Nitrogen 7, Creatinine 0.7, Estimat Glomerular Filtration Rate > 60, Glucose Level 123H, Calcium Level 8.8 Height (Feet): 5 Height (Inches): 2.00 Weight (Pounds): 175 Objective WDWN NAD clear breath sounds bilaterally without rhonchi or wheeze [id number] without MRG NABS nontender no HSM no CCE nonfocal Rajeev Díaz MD January 05, 2019 08:03
--- NOTE | 2019-01-05 08:59 | NUR ---
NURSE NOTES: Patient had BM on 12/30/2018, [address] Díaz was notified and ordered that MOM 30cc qd prn, Dulcolax 10 mg qd prn. Noted and carried out.
[2019-01-05] MEDS ORDERED: Bisacodyl EC 5mg tab ORAL PRN (09:00)
[2019-01-05] MEDS ORDERED: Milk of Magnesia 30ml Ud ORAL PRN (09:00)
--- NOTE | 2019-01-05 09:34 | NUR ---
CASE MANAGEMENT:REVIEW 01/05/19 SI: POD #5 S/P ALIF L5/S1 WITH INTERNAL STABILIZATION 99.4 69 19 128/69 94% ON RA IS: PROTONIX PO QD IVF@75/HR NORCO PO Q3HRS PRN : MED/SURG STATUS 3 EAST DCP: PATIENT IS FROM HOME PLAN: DISCHARGE HOME PROVIDE FRONT WHEEL WALKER
[2019-01-05 12:00] VITALS: BP 99/58
[2019-01-05 16:00] VITALS: BP 99/58
--- NOTE | 2019-01-05 19:45 | NUR ---
NURSE NOTES: Report taken from NAKIA Angela. patient is awake and in bed, family at bedside. A&Ox4. No signs of distress on room air. Having minimal complaints of pain 3/10 near surgical site. IV site c/d/i and patent, running D51/2NS + 20KCl at 75mls/hr. Surgical incision site c/d/i, no swelling. Patient noticed some itching upon right buttock, upon observation there is a rash, will follow up with MD. D/C order placed pending medication approval. Bed in lowest position, call light within reach.
--- NOTE | 2019-01-05 19:55 | NUR ---
HAND-OFF: Report given to NAKIA Edmondson.
[2019-01-05 20:00] VITALS: BP 101/66
[2019-01-05] MEDS ORDERED: Desitin Rash Paste TOPIC PRN (21:15)
[2019-01-06] VITALS: BP 104/62
[2019-01-06] MEDS: D5 1/2NS w/KCl 20mEq 1,000 ML IV SCH (02:04)
[2019-01-06 04:00] VITALS: BP 95/61
[2019-01-06] MEDS: Metoclopramide 10mg/2ml Inj IVP PRN (05:29)
--- NOTE | 2019-01-06 07:40 | NUR ---
NURSE NOTES: WALKING ROUNDS DONE WITH OUTGOING RN. PATIENT AWAKE IN BED. FAMILY AT BEDSIDE.QUESTIONS ANSWERED, NEEDS MET AT THIS TIME. DISCUSSED PLAN OF CARE FOR THE DAY. VERBALIZED UNDERSTANDING. PAIN MANAGED AT THIS TIME. CALL LIGHT WITHIN REACH. BED IN LOW AND LOCKED POSITION.
--- NOTE | 2019-01-06 07:42 | NUR ---
HAND-OFF: Report given to NAKIA Malin. patient is awake and VS stable. Surgical site c/d/i and dressing changed.
[2019-01-06 08:00] VITALS: BP 150/66
--- NOTE | 2019-01-06 08:58 | General Progress Note ---
Assessment/Plan Assessment/Plan: Collapsed L5/S1 Disc Space, Low Back Pain, Instability ALIF L5/S1 with internal stabalization PLAN 1. incentive spirometry 2. out of bed as able 3. PT evaluation and therapy 4. Hydration and po intake 5. Pain management 6. discharge today- pending approval of pain meds impression, plan, and exam edited and reviewed in detail care discussed with RN Subjective Allergies: Coded Allergies: CODEINE (Verified Allergy, Severe, 12/30/18) SOB DIPHENHYDRAMINE (Verified Allergy, Severe, 12/30/18) SKIN RASH Subjective care noted stable overnight dc held- unable to get outpatient pain meds Objective Last 24 Hour Vital Signs Date Time Temp Pulse Resp B/P (MAP) Pulse Ox O2 Delivery O2 Flow Rate FiO2 01/06/19 08:00 99.4 75 16 150/66 (94) 94 01/06/19 04:00 98.9 71 16 95/61 (72) 94 01/06/19 00:00 99.2 79 18 104/62 (76) 94 01/05/19 21:00 Room Air 01/05/19 20:00 99.5 83 16 101/66 (78) 94 01/05/19 16:00 100.8 72 18 99/58 (72) 95 01/05/19 12:00 100.0 72 18 99/58 (72) 95 01/05/19 09:00 Room Air Intake and Output 01/05/19 01/06/19 19:00 07:00 Intake Total 1900 ml 360 ml Balance 1900 ml 360 ml Intake Oral 360 ml IV Total 900 ml Other 1000 ml # Voids 3 2 Height (Feet): 5 Height (Inches): 2.00 Weight (Pounds): 175 Objective WDWN NAD clear breath sounds bilaterally without rhonchi or wheeze [id number] without MRG NABS nontender no HSM no CCE nonfocal Rajeev Díaz MD January 06, 2019 08:58
[2019-01-06] MEDS ORDERED: Milk of Magnesia 30ml Ud ORAL PRN (09:30)
[2019-01-06] MEDS: HYDROcodone/Acetamin 7.5/325 tab ORAL PRN (11:06)
[2019-01-06 12:00] VITALS: BP 114/70
--- NOTE | 2019-01-06 12:47 | NUR ---
NURSE NOTES: PATIENT DISCHARGED HOME TODAY. PER PT AND SPOUSE, WILL BUY NORCO OUT OF POCKET AND SPEAK WITH ATTY AND WC TO REIMBURSE. JESSE. DR. HENDRICKS, AND GERMAIN Spencer MADE AWARE.
--- NOTE | 2019-01-07 16:53 | Discharge Summary ---
Discharge Summary Hospital Course Date of Admission December 31, 2018 at 05:15 Date of Discharge January 06, 2019 at 12:50 Admitting Diagnosis Collapsed L5/S1 Disc Space, Low Back Pain, Instability Reason for Hospitalization: Elective surgery HPI Bhavna Zacarias is a 58 year old female who was admitted on December 31, 2018 at 05:15 for Collapsed L5/S1 Disc Space, Low Back Pain, Instability Instability And Herniation Consultations Dr Díaz - IM Procedures s/p 12/31/[address] Rashid Anterior annulotomy and nuclear diskectomy with partial vertebrectomy, bilateral microneurolysis and bilateral foraminotomy, open-reduction and internal fixation at lumbosacral level using a small InFix cage with 8 mm of height and 6 + 3 degrees of lordosis, fusion with autogenous bone and bone protein inserted between the ends of the cage, use of image intensification and Cell Saver s/p 12/31/[address] Bullard ( vascular approach) Anterior retroperitoneal exposure L5-S1 vertebral interspace, right retroperitoneal approach. Hospital Course status post surgery course of recovery uneventful initially IV fluids, kept NPO until bowel function returned s/p perioperative antibiotics neurovascular status closely monitored, stable incision clean , dry, and intact pain management addressed ; pain controlled hemodynamically stable ambulated with PT fall precautions maintained safe for ambulation DVT prophylaxis provided use of incentive spirometry was encouraged while in the bed when bowel function returned, started on liquid diet and advanced as tolerated tolerated diet , IV fluids discontinued GI prophylaxis provided antiemetics were on board as needed voided freely bowel regimen instituted patient was stable for discharge discharge instructions provided wear lumbar brace 11/03 follow up with surgeon as outpatient as advised by surgeon FINAL DIAGNOSES Collapsed L5/S1 Disc Space Low Back Pain Instability s/p ALIF L5/S1 with internal stabilization Discharge Medications Continued Medications: Budesonide/Formoterol Fumarate (Symbicort 160-4.5 Mcg Inhaler) 10.2 Gm Hfa.aer.ad 2 PUFF IH BID, #1 INH 0 Refills (This prescription has been renewed) Lansoprazole* (Lansoprazole*) 30 Mg Capsule. 30 MG ORAL DAILY, CAP (This prescription has been renewed) Discharge Condition Upon Discharge: stable Discharge Disposition Patient was discharged home Discharge Instructions Discharge Instructions Special Instructions I have been assigned to complete a D/C Summary on this account. I was not involved in the patient management Paula Zheng NP January 07, 2019 16:53
== END 2019-01-06 12:50 | disposition home or self-care (01) | DRG 460 ==
LOC: SDSOVERFLO 12-31 05:15 → 3E 12-31 10:53
PROC: 3E0U0GB Introduction of Recombinant Bone Morphogenetic Protein into Joints, Open Approach (ICD-10-PCS; principal; 2018-12-31 07:00)
PROC: 0ST40ZZ Resection of Lumbosacral Disc, Open Approach (ICD-10-PCS; principal; 2018-12-31 07:00)
PROC: 0SG30A0 Fusion of Lumbosacral Joint with Interbody Fusion Device, Anterior Approach, Anterior Column, Open Approach (ICD-10-PCS; principal; 2018-12-31 07:00)
DX: M53.2X7 Spinal instabilities, lumbosacral region (principal); I10 Essential (primary) hypertension; E78.00 Pure hypercholesterolemia, unspecified; K76.0 Fatty (change of) liver, not elsewhere classified; K21.9 Gastro-esophageal reflux disease without esophagitis; M25.512 Pain in left shoulder; M25.511 Pain in right shoulder; J45.909 Unspecified asthma, uncomplicated; E66.3 Overweight; Z68.32 Body mass index [BMI] 32.0-32.9, adult
CPT/HCPCS: 36415; 72020; 76000; 80048; 85025; 86850; 86900; 86901; 87081; 94003; 94150; 94760; J2405; J2710; J2765